=== PATIENT | male | born 2000 | race African-American/Black ===

== ENCOUNTER 2019-03-17 13:29 | Emergency (ER) | payer MEDICAID ==
[~2019-03-17] VITALS: Ht 177.8 cm; Wt 86.2 kg
[2019-03-17 14:33] LABS: Alcohol, Urine < 3.0 mg/dL (0-5); Amphetamine Screen, Urine POSITIVE (NEGATIVE); Barbiturate Scree,Urine NEGATIVE (NEGATIVE); Benzodiazephine Screen, Urine NEGATIVE (NEGATIVE); Cannabinoid Screen, Urine POSITIVE (NEGATIVE); Cocaine Screen, Urine NEGATIVE (NEGATIVE); Opiate Scree,Urine NEGATIVE (NEGATIVE); Phencyclidine Screen, Urine NEGATIVE (NEGATIVE)
[2019-03-17 14:42] LABS: Basophils # (auto) 0.1 uL; Basophils % (auto) 1.7 % (0.0-2.0); Eosinophils # (auto) 0.1 uL; Hematocrit 51.7 % (41.0-53.0); Hemoglobin 17.5 g/dL (13.5-17.5); Lymphocytes # (auto) 1.7 uL; Lymphocytes % (auto) 30.3 % (10.0-50.0); Mean Corpuscular Hemoglobin 31.3 pg (28.0-32.0); Mean Corpuscular Hgb Conc. 33.7 g/dL (32.0-36.0); Mean Corpuscular Volume 92.9 fL (80.0-100.0); Monocytes # (auto) 0.6 uL; Monocytes % (auto) 10.6 % (0.0-12.0); Neutrophils # (auto) 3.1 uL; Neutrophils % (auto) 55.4 % (37.0-80.0); Nucleated Red Blood Cells % 0.1 %; Platelet Count (auto) 223 10^3/uL (140-450); Red Blood Cells 5.57 10^6/uL (4.5-5.90); Red Cell Distribution Width 13.5 % (11.8-14.3); White Blood Cell 5.6 10^3/uL (4.4-10.8)
[2019-03-17 14:43] LABS: Urine Bacteria NONE SEEN /hpf (None Seen); Urine Blood Negative /uL (Negative); Urine WBC 20 /hpf (0 - 3)
[2019-03-17 14:45] LABS: Albumin 4.6 g/dL (3.4-5.0); Calcium 9.5 mg/dL (8.5-10.1); Potassium 3.8 mmol/L (3.5-5.1)
[2019-03-17 14:48] LABS: Bilirubin, Total 1.8 mg/dL (0.2-1.0); Total Protein 8.7 g/dL (6.4-8.2)
[2019-03-17 15:30] VITALS: BP 136/82
== END 2019-03-17 17:05 | disposition home or self-care (01) ==
LOC: ER 13:29
DX: N39.0 Urinary tract infection, site not specified (principal); F12.10 Cannabis abuse, uncomplicated; F15.10 Other stimulant abuse, uncomplicated; Z88.0 Allergy status to penicillin
CPT/HCPCS: 36415; 80053; 80307; 81001; 85025

== ENCOUNTER 2019-06-16 16:47 | Emergency (ER) | payer SELFPAY ==
[~2019-06-16] VITALS: Ht 177.8 cm; Wt 86.2 kg
[2019-06-16 17:00] VITALS: BP 135/63
[2019-06-16 17:43] LABS: Urine Bacteria NONE SEEN /hpf (None Seen); Urine Blood Negative /uL (Negative); Urine Mucus FEW (None Seen); Urine Specific Gravity 1.034 (1.001-1.035); Urine WBC 2 /hpf (0 - 3)
== END 2019-06-16 21:02 | disposition home or self-care (01) ==
LOC: ER 16:47
DX: N45.1 Epididymitis (principal); F12.10 Cannabis abuse, uncomplicated; F15.10 Other stimulant abuse, uncomplicated; Z88.0 Allergy status to penicillin
CPT/HCPCS: 81001

== ENCOUNTER 2019-08-17 16:33 | Emergency (ER) | payer SELFPAY ==
[~2019-08-17] VITALS: Ht 180.3 cm; Wt 86.2 kg
[2019-08-17 17:00] VITALS: BP 127/76
== END 2019-08-17 19:44 | disposition home or self-care (01) ==
LOC: ER 16:33
DX: K40.90 Unilateral inguinal hernia, without obstruction or gangrene, not specified as recurrent (principal); F12.10 Cannabis abuse, uncomplicated; F15.10 Other stimulant abuse, uncomplicated; Z88.0 Allergy status to penicillin

== ENCOUNTER 2021-01-26 06:55 | Inpatient (IN) | payer BC, MEDICAID, OTHER ==
[~2021-01-26] VITALS: Ht 177.8 cm; Wt 98.0 kg
[2021-01-26 07:44] LABS: Basophils # (auto) 0.1 10 ^3/uL (0-0.2); Basophils % (auto) 0.5 % (0.0-2.0); Eosinophils # (auto) 0.1 10 ^3/uL (0-0.8); Eosinophils % (auto) 0.5 % (0.0-7.0); Hematocrit 51.4 % (41.0-53.0); Lymphocytes # (auto) 1.1 10 ^3/uL (0.4-5.4); Mean Corpuscular Hemoglobin 30.2 pg (28.0-32.0); Mean Corpuscular Hgb Conc. 33.1 g/dL (32.0-36.0); Mean Corpuscular Volume 91.2 fL (80.0-100.0); Monocytes # (auto) 1.5 10 ^3/uL (0-1.3); Monocytes % (auto) 8.5 % (0.0-12.0); Neutrophils % (auto) 84.5 % (37.0-80.0); Nucleated Red Blood Cells % 0.1 %; Platelet Count (auto) 261 10^3/uL (140-450); Red Blood Cells 5.63 10^6/uL (4.5-5.90); Red Cell Distribution Width 13.3 % (11.8-14.3); White Blood Cell 17.8 10^3/uL (4.4-10.8)
[2021-01-26] MEDS ORDERED: ONDANSETRON HCL 4 MG/2 ML VIAL IV ONE (07:45)
[2021-01-26] MEDS ORDERED: SODIUM CHLORIDE 0.9% 1,000 ML IV ONE (07:45)
[2021-01-26] MEDS ORDERED: PANTOPRAZOLE 40mg/50ML NS AE 50 ML IV ONE (07:45)
[2021-01-26] MEDS ORDERED: MORPHINE SULFATE 4 MG/ML SYR/VIAL IV ONE (07:45)
[2021-01-26 08:00] LABS: Albumin 4.3 g/dL (3.4-5.0); Anion Gap 7 (5-15); Blood Urea Nitrogen 10 mg/dL (7-18); Calcium 9.5 mg/dL (8.5-10.1); Carbon Dioxide 24 mmol/L (21-32); Chloride 107 mmol/L (98-107); Glucose 103 mg/dL (74-106); Lipase 62 U/L (73-393); Potassium 4.7 mmol/L (3.5-5.1); Sodium 138 mmol/L (136-145)
[2021-01-26 08:02] LABS: Urine Bacteria NONE SEEN /hpf (None Seen); Urine Blood Negative /uL (Negative); Urine Mucus FEW (None Seen); Urine Specific Gravity 1.024 (1.001-1.035); Urine WBC 3 /hpf (0 - 3)
[2021-01-26 08:06] LABS: Alanine Aminotransferase 111 U/L (16-61); Alkaline Phosphatase 111 U/L (45-117); Aspartate Aminotransferase 64 U/L (15-37); BUN/Creatinine Ratio 8.8; Bilirubin, Total 0.7 mg/dL (0.2-1.0); GFR African American 105 mL/min; GFR Non-African American 87 mL/min; Total Protein 8.6 g/dL (6.4-8.2)
[2021-01-26 08:06] LABS: Amphetamine Screen, Urine NEGATIVE (NEGATIVE); Barbiturate Scree,Urine NEGATIVE (NEGATIVE); Benzodiazephine Screen, Urine NEGATIVE (NEGATIVE); Cannabinoid Screen, Urine POSITIVE (NEGATIVE); Cocaine Screen, Urine NEGATIVE (NEGATIVE)
[2021-01-26] MEDS ORDERED: IOHEXOL 350 MG/ML 100ML IJ ONE (08:07)
[2021-01-26 08:13] LABS: Opiate Scree,Urine NEGATIVE (NEGATIVE); Phencyclidine Screen, Urine NEGATIVE (NEGATIVE)
[2021-01-26] MEDS ORDERED: cefTRIAXone 1GM/50ML D5W 50 ML IV ONE (09:15)
[2021-01-26] MEDS ORDERED: ONDANSETRON HCL 4 MG/2 ML VIAL IV PRN (10:15)
[2021-01-26] MEDS ORDERED: MORPHINE SULF INJ 2 MG/ML SYRINGE 1ML IV PRN (10:15)
[2021-01-26 10:23] LABS: Lactic Acid w/Reflex 2.5 mmol/L (0.4-2.0)
[2021-01-26] MEDS: SODIUM CHLORIDE 0.9% 1,000 ML IV SCH ×2 (13:27→18:38)
[2021-01-26] MEDS: metroNIDAZOLE 500MG/100ML 100 ML IV SCH ×2 (13:34→21:05)
[2021-01-26 15:12] LABS: Hematocrit 47.1 % (41.0-53.0)
[2021-01-26] MEDS: SUCRALFATE 1 GM/10 ML ORAL SUSP PO SCH ×2 (17:30→21:05)
[2021-01-26] MEDS: PANTOPRAZOLE 40 MG/10 ML VIAL INJ IV SCH (21:05)
[2021-01-26 22:00] VITALS: BP 137/94
[2021-01-27] MEDS: SODIUM CHLORIDE 0.9% 1,000 ML IV SCH ×3 (02:15→18:18)
[2021-01-27 05:00] VITALS: BP 125/60
[2021-01-27] MEDS: metroNIDAZOLE 500MG/100ML 100 ML IV SCH (05:40)
[2021-01-27] MEDS: SUCRALFATE 1 GM/10 ML ORAL SUSP PO SCH ×4 (05:40→21:23)
[2021-01-27 05:59] LABS: Basophils # (auto) 0 10 ^3/uL (0-0.2); Basophils % (auto) 0.6 % (0.0-2.0); Eosinophils # (auto) 0.1 10 ^3/uL (0-0.8); Eosinophils % (auto) 1.4 % (0.0-7.0); Hematocrit 43.6 % (41.0-53.0); Hemoglobin 15.1 g/dL (13.5-17.5); Lymphocytes # (auto) 1.2 10 ^3/uL (0.4-5.4); Lymphocytes % (auto) 19.2 % (10.0-50.0); Mean Corpuscular Hemoglobin 31.6 pg (28.0-32.0); Mean Corpuscular Hgb Conc. 34.6 g/dL (32.0-36.0); Mean Corpuscular Volume 91.3 fL (80.0-100.0); Monocytes # (auto) 0.8 10 ^3/uL (0-1.3); Monocytes % (auto) 12.6 % (0.0-12.0); Neutrophils # (auto) 4.3 10 ^3/uL (1.6-8.6); Neutrophils % (auto) 66.2 % (37.0-80.0); Nucleated Red Blood Cells % 0.1 %; Platelet Count (auto) 215 10^3/uL (140-450); Red Blood Cells 4.78 10^6/uL (4.5-5.90); Red Cell Distribution Width 13.6 % (11.8-14.3); White Blood Cell 6.5 10^3/uL (4.4-10.8)
[2021-01-27 06:18] LABS: Albumin 3.7 g/dL (3.4-5.0); Calcium 8.4 mg/dL (8.5-10.1); Potassium 3.5 mmol/L (3.5-5.1)
[2021-01-27 06:21] LABS: BUN/Creatinine Ratio 7.9; Bilirubin, Total 1.2 mg/dL (0.2-1.0); Total Protein 7.2 g/dL (6.4-8.2)
[2021-01-27 09:02] VITALS: BP 139/62
[2021-01-27] MEDS: PANTOPRAZOLE 40 MG/10 ML VIAL INJ IV SCH ×2 (09:18→21:24)
[2021-01-27] MEDS ORDERED: levoFLOXacin 500MG 100 ML IV SCH (10:00)
[2021-01-27 12:43] VITALS: BP 117/55
[2021-01-27 16:51] VITALS: BP 148/67
[2021-01-27 20:00] VITALS: BP 111/67
[2021-01-27 22:00] VITALS: BP 111/67
[2021-01-28] MEDS: SODIUM CHLORIDE 0.9% 1,000 ML IV SCH (02:15)
[2021-01-28 05:00] VITALS: BP 116/79
[2021-01-28 05:45] LABS: Basophils # (auto) 0.1 10 ^3/uL (0-0.2); Eosinophils # (auto) 0.1 10 ^3/uL (0-0.8); Eosinophils % (auto) 2.6 % (0.0-7.0); Hematocrit 44.3 % (41.0-53.0); Hemoglobin 15.7 g/dL (13.5-17.5); Lymphocytes # (auto) 1.5 10 ^3/uL (0.4-5.4); Lymphocytes % (auto) 29.4 % (10.0-50.0); Mean Corpuscular Hemoglobin 31.9 pg (28.0-32.0); Mean Corpuscular Hgb Conc. 35.3 g/dL (32.0-36.0); Mean Corpuscular Volume 90.4 fL (80.0-100.0); Monocytes # (auto) 0.6 10 ^3/uL (0-1.3); Neutrophils # (auto) 2.9 10 ^3/uL (1.6-8.6); Nucleated Red Blood Cells % 0.1 %; Platelet Count (auto) 216 10^3/uL (140-450); Red Cell Distribution Width 13.5 % (11.8-14.3); White Blood Cell 5.2 10^3/uL (4.4-10.8)
[2021-01-28 05:58] LABS: INR 1.08 (0.9-1.15); Partial Thromboplastin Time 27.4 sec (23.0-31.2)
[2021-01-28 06:00] LABS: BUN/Creatinine Ratio 6.4; Potassium 3.5 mmol/L (3.5-5.1)
[2021-01-28] MEDS: PANTOPRAZOLE 40 MG/10 ML VIAL INJ IV SCH (08:06)
[2021-01-28] MEDS: SUCRALFATE 1 GM/10 ML ORAL SUSP PO SCH ×3 (08:06→21:27)
[2021-01-28] MEDS ORDERED: SODIUM CHLORIDE LOCK 10 ML ONE (08:22)
[2021-01-28] MEDS ORDERED: LIDOCAINE VISCOUS 2% 15ML UD ONE (08:22)
[2021-01-28] MEDS ORDERED: diphenhdrAMINE HCL 50 MG/1 ML VL ONE (08:22)
[2021-01-28 08:30] VITALS: BP 140/82
[2021-01-28] MEDS: fentaNYL CITRATE 100 MCG/2 ML VL ONE ×2 (11:57→12:00)
[2021-01-28] MEDS: MIDAZOLAM HCL 5 MG/ML-1ML VIAL ONE ×2 (11:57→12:00)
[2021-01-28 13:51] VITALS: BP 139/88
[2021-01-28 16:24] VITALS: BP 136/80
[2021-01-28] MEDS: PANTOPRAZOLE 40 MG TAB PO SCH (21:25)
[2021-01-28 22:00] VITALS: BP 130/58
[2021-01-29] MEDS: SODIUM CHLORIDE 0.9% 1,000 ML IV SCH ×2 (02:15→10:15)
[2021-01-29 05:00] VITALS: BP 121/63
[2021-01-29] MEDS: SUCRALFATE 1 GM/10 ML ORAL SUSP PO SCH ×2 (06:20→15:19)
[2021-01-29 07:28] LABS: Basophils # (auto) 0.1 10 ^3/uL (0-0.2); Basophils % (auto) 1.1 % (0.0-2.0); Eosinophils # (auto) 0.1 10 ^3/uL (0-0.8); Eosinophils % (auto) 1.3 % (0.0-7.0); Hematocrit 48.3 % (41.0-53.0); Hemoglobin 16.3 g/dL (13.5-17.5); Lymphocytes # (auto) 1.4 10 ^3/uL (0.4-5.4); Lymphocytes % (auto) 22.9 % (10.0-50.0); Mean Corpuscular Hemoglobin 30.8 pg (28.0-32.0); Mean Corpuscular Hgb Conc. 33.8 g/dL (32.0-36.0); Monocytes # (auto) 0.6 10 ^3/uL (0-1.3); Monocytes % (auto) 10.1 % (0.0-12.0); Neutrophils # (auto) 3.8 10 ^3/uL (1.6-8.6); Neutrophils % (auto) 64.6 % (37.0-80.0); Nucleated Red Blood Cells % 0.1 %; Platelet Count (auto) 247 10^3/uL (140-450); Red Blood Cells 5.31 10^6/uL (4.5-5.90); Red Cell Distribution Width 13.6 % (11.8-14.3); White Blood Cell 5.9 10^3/uL (4.4-10.8)
[2021-01-29 07:37] LABS: BUN/Creatinine Ratio 9.3; Calcium 9.1 mg/dL (8.5-10.1); Potassium 3.5 mmol/L (3.5-5.1)
[2021-01-29 09:00] VITALS: BP 116/58
[2021-01-29] MEDS: PANTOPRAZOLE 40 MG TAB PO SCH (09:00)
[2021-01-29] MEDS ORDERED: PANT40TA2 PO (10:39)
[2021-01-29] MEDS ORDERED: SUCR1SUS5 PO (10:39)
[2021-01-29 12:45] VITALS: BP 132/79
[2021-01-29 13:00] VITALS: BP 132/79
[2021-01-29 16:44] VITALS: BP 132/83
== END 2021-01-29 17:20 | disposition home or self-care (01) | DRG 377 ==
LOC: ER 06:55 → TELE 10:11 → TELE-WESTW 20:39 → TELE-EAST 01-27 18:24
PROVIDERS: ADMIT Nurse Practitioner Acute Care; ATTEND Internal Medicine Pulmonary Disease
PROC: 0DB68ZX Excision of Stomach, Via Natural or Artificial Opening Endoscopic, Diagnostic (ICD-10-PCS; principal; 2021-01-28 11:50)
DX: K29.71 Gastritis, unspecified, with bleeding (principal); U07.1 COVID-19; R71.0 Precipitous drop in hematocrit; E66.9 Obesity, unspecified; F12.10 Cannabis abuse, uncomplicated; Z88.0 Allergy status to penicillin
CPT/HCPCS: 36415; 71045; 74177; 80048; 80053; 80307; 81001; 83605; 83690; 84484; 85014; 85018; 85025; 85610; 85730; 86850; 86900; 86901; 87040; 87426; 93005; 96361; 96365; 96375; 99291; C9113; G0378; J0696; J1956; J2250; J2405; J3490